=== PATIENT | female | born 1975 | race Two or more races ===

== ENCOUNTER 2016-11-09 17:38 | Emergency (ER) | payer MEDICAID ==
[~2016-11-09] VITALS: Ht 165.1 cm; Wt 86.2 kg
[2016-11-09 17:43] VITALS: BP 144/81
[2016-11-09] MEDS ORDERED: ACETAMINOPHEN ES 500 MG TABLET PO ONE (18:00)
[2016-11-09] MEDS ORDERED: ACETAMINOPHEN ES 500 MG TABLET ONE (18:05)
== END 2016-11-09 21:29 | disposition home or self-care (01) ==
LOC: ER 17:40
DX: R51 Headache (principal); I10 Essential (primary) hypertension; C79.31 Secondary malignant neoplasm of brain; Z85.820 Personal history of malignant melanoma of skin; Z98.2 Presence of cerebrospinal fluid drainage device; Z88.6 Allergy status to analgesic agent; V49.40XA Driver injured in collision with unspecified motor vehicles in traffic accident, initial encounter; Y93.89 Activity, other specified; Y92.89 Other specified places as the place of occurrence of the external cause; Y99.9 Unspecified external cause status
CPT/HCPCS: 99283; A4606; Z7610

== ENCOUNTER 2019-08-04 18:20 | Emergency (ER) | payer MEDICAID ==
[~2019-08-04] VITALS: Ht 154.9 cm; Wt 104.3 kg
[2019-08-04 18:42] VITALS: BP 113/81
[2019-08-04] MEDS ORDERED: ALPRAZOLAM 0.25 MG TABLET PO ONE (19:00)
[2019-08-04] MEDS ORDERED: ALPRAZOLAM 0.25 MG TABLET ONE (19:11)
[2019-08-04] MEDS ORDERED: diphenhydrAMINE HCL 25 MG CAPSULE PO ONE (20:30)
[2019-08-04] MEDS ORDERED: diphenhydrAMINE HCL 25 MG CAPSULE ONE (21:13)
== END 2019-08-04 21:36 | disposition home or self-care (01) ==
LOC: ER 18:24
DX: F41.9 Anxiety disorder, unspecified (principal); F43.9 Reaction to severe stress, unspecified; I10 Essential (primary) hypertension; Z98.890 Other specified postprocedural states; Z90.49 Acquired absence of other specified parts of digestive tract; Z90.710 Acquired absence of both cervix and uterus; Z88.6 Allergy status to analgesic agent; Z85.828 Personal history of other malignant neoplasm of skin
CPT/HCPCS: 99284; Q0163

== ENCOUNTER 2019-08-31 21:36 | Emergency (ER) | payer SELFPAY ==
[~2019-08-31] VITALS: Ht 154.9 cm; Wt 95.3 kg
[2019-08-31 22:08] VITALS: BP 138/89
--- NOTE | 2019-08-31 22:18 | NUR ---
PT AAOX4. AMBULATORY. PT C/O SKIN RASH L UPPER EXT, +L FACIAL SWELLING. PT ALSO STATED SHE HAS SHINGLES AND USUALLY GETS PO MEDS TO TAKE CARE OF THE RASH. NO ACUTE DISTRESS NOTED.
== END 2019-08-31 22:51 | disposition home or self-care (01) ==
LOC: ER 21:40
DX: B02.9 Zoster without complications (principal); I10 Essential (primary) hypertension; Z90.710 Acquired absence of both cervix and uterus; Z88.8 Allergy status to other drugs, medicaments and biological substances; Z88.6 Allergy status to analgesic agent; Z98.890 Other specified postprocedural states; Z85.820 Personal history of malignant melanoma of skin

== ENCOUNTER 2019-10-05 18:11 | Emergency (ER) | payer OTHER, MEDICAID ==
[~2019-10-05] VITALS: Ht 154.9 cm; Wt 103.9 kg
[2019-10-05] MEDS ORDERED: PROCHLORPERAZINE EDISYLATE 10 MG/2 ML VIAL ONE (18:58)
[2019-10-05] MEDS ORDERED: diphenhydrAMINE HCL 50 MG/ML VIAL ONE (18:58)
[2019-10-05] MEDS ORDERED: DEXAMETHASONE SOD PHOSPHATE 10 MG/ML VIAL ONE (18:58)
[2019-10-05] MEDS ORDERED: KETOROLAC TROMETHAMINE INJ 30 MG/ML VIAL ONE (18:58)
[2019-10-05] MEDS ORDERED: diphenhydrAMINE HCL 50 MG/ML VIAL IV ONE (19:00)
[2019-10-05] MEDS ORDERED: DEXAMETHASONE SOD PHOSPHATE 10 MG/ML VIAL IV ONE (19:00)
[2019-10-05] MEDS ORDERED: PROCHLORPERAZINE EDISYLATE 10 MG/2 ML VIAL IVP ONE (19:00)
[2019-10-05] MEDS ORDERED: IV NS 0.9% 1,000 ML BAG IV ONE (19:00)
[2019-10-05] MEDS ORDERED: KETOROLAC TROMETHAMINE INJ 30 MG/ML VIAL IV ONE (19:00)
--- NOTE | 2019-10-05 19:05 | NUR ---
patient came in to the er c/o worsening pressure headache, l facial nuumbness since last night. nauseted. vomitted x 3 last night. On room air, breathing evenly and unlabored. connected to the monitor and pulse ox. kept comfortable, will continue to monitor accordingly.
--- NOTE | 2019-10-05 19:09 | NUR ---
report given to Tony LARSEN for marisol.
--- NOTE | 2019-10-05 19:31 | NUR ---
received endorsement from LOVE [employer]iones. will continue to monitor pt's condition.
--- NOTE | 2019-10-05 19:46 | NUR ---
Patient discharged to home in stable condition. Written and verbal after care instructions given. Patient verbalizes understanding of instruction and RX. IV removed. Catheter intact and site benign. Pressure and 4x4 applied to site. No bleeding noted. PT ambulatory with a steady gait.
[2019-10-05 19:47] VITALS: BP 128/78
== END 2019-10-05 19:50 | disposition home or self-care (01) ==
LOC: ER 18:13
DX: R51 Headache (principal); R11.2 Nausea with vomiting, unspecified; I10 Essential (primary) hypertension; Z90.710 Acquired absence of both cervix and uterus; Z88.6 Allergy status to analgesic agent; Z88.8 Allergy status to other drugs, medicaments and biological substances; Z85.820 Personal history of malignant melanoma of skin
CPT/HCPCS: 96361; 96374; 96375; 99283; J0780; J1100; J1200; J1885; J7030

== ENCOUNTER 2019-12-04 09:44 | Emergency (ER) | payer MEDICAID, OTHER ==
[~2019-12-04] VITALS: Ht 154.9 cm; Wt 106.1 kg
--- NOTE | 2019-12-04 10:00 | NUR ---
HEADACHE, NAUSEA SINCE LAST NIGHT S/P ANXIETY ATTACK . PATIENT A/OX4, BREATHING EVEN AND UNLABORED, AMBULATORY WITH STEADY GAIT. NO DISTRESS NOTED.
[2019-12-04] MEDS ORDERED: PROCHLORPERAZINE EDISYLATE 10 MG/2 ML VIAL ONE (10:08)
[2019-12-04] MEDS ORDERED: KETOROLAC TROMETHAMINE INJ 30 MG/ML VIAL ONE (10:08)
[2019-12-04 10:19] VITALS: BP 121/82
--- NOTE | 2019-12-04 10:19 | NUR ---
Patient discharged to home in stable condition. Written and verbal after care instructions given. Patient verbalizes understanding of instruction.
[2019-12-04] MEDS ORDERED: KETOROLAC TROMETHAMINE INJ 60 MG/2 ML VIAL IM ONE (10:30)
[2019-12-04] MEDS ORDERED: PROCHLORPERAZINE EDISYLATE 10 MG/2 ML VIAL IM ONE (10:30)
== END 2019-12-04 10:20 | disposition home or self-care (01) ==
LOC: ER 09:45
DX: G43.909 Migraine, unspecified, not intractable, without status migrainosus (principal); I10 Essential (primary) hypertension; Z90.710 Acquired absence of both cervix and uterus; Z88.6 Allergy status to analgesic agent; Z88.8 Allergy status to other drugs, medicaments and biological substances
CPT/HCPCS: 96372 ×2; 99284; J0780; J1885

== ENCOUNTER 2020-01-16 12:46 | Emergency (ER) | payer OTHER ==
[~2020-01-16] VITALS: Ht 152.4 cm; Wt 112.9 kg
--- NOTE | 2020-01-16 12:55 | NUR ---
PT AMBULATORY TO ER BED 03 C/O HEADACHE W/ NAUSEA FOR 2 DAYS NOW. HX OF RECCURENT HEADACHE. 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 VSS. DENIES CHEST PAIN. AWAITING MD LEGGETT.
--- NOTE | 2020-01-16 13:12 | NUR ---
SUZANNE DIGITAL STRATEGY MANAGER AT BEDSIDE FOR EVAL.
[2020-01-16] MEDS ORDERED: METOCLOPRAMIDE HCL 10 MG/2 ML VIAL ONE (13:15)
[2020-01-16] MEDS ORDERED: diphenhydrAMINE HCL 50 MG/ML VIAL ONE (13:17)
[2020-01-16] MEDS ORDERED: HYDROMORPHONE 1 MG/1 ML DISP.SYRIN IV ONE (13:30)
[2020-01-16] MEDS ORDERED: diphenhydrAMINE HCL 50 MG/ML VIAL IV ONE (13:30)
[2020-01-16] MEDS ORDERED: METOCLOPRAMIDE HCL 10 MG/2 ML VIAL IV ONE (13:30)
[2020-01-16] MEDS ORDERED: IV NS 0.9% 100 ML BAG IV ONE (13:30)
[2020-01-16] MEDS ORDERED: HYDROMORPHONE 1 MG/1 ML DISP.SYRIN ONE (13:36)
[2020-01-16 14:19] VITALS: BP 125/78
--- NOTE | 2020-01-16 14:24 | NUR ---
IV removed. Catheter intact and site benign. Pressure and 4x4 applied to site. No bleeding noted. Pt feeling much better. denies nausea. Patient discharged to home in stable condition. Written and verbal after care instructions given. Patient verbalizes understanding of instruction.
== END 2020-01-16 14:26 | disposition home or self-care (01) ==
LOC: ER 12:47
DX: R51 Headache (principal); I10 Essential (primary) hypertension; Z98.890 Other specified postprocedural states; Z88.6 Allergy status to analgesic agent; Z88.8 Allergy status to other drugs, medicaments and biological substances; Z98.2 Presence of cerebrospinal fluid drainage device
CPT/HCPCS: 96374; 96375; 99284; J1170; J1200; J2765; J7030 ×2

== ENCOUNTER 2020-02-08 01:36 | Emergency (ER) | payer MEDICAID, OTHER ==
[~2020-02-08] VITALS: Ht 152.4 cm; Wt 116.1 kg
--- NOTE | 2020-02-08 01:45 | NUR ---
PT CAME TO THE ED C/O PRESSURE ON THE R SIDE OF HER HEAD AND R EYE AFTER HAVING AN ARUMENT W/ HER SON. 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 PT AAAOX4, VSS, RESPIRATIONS EVEN AND UNLABORED ON RA W/ NAD NOTED. PT CONNECTED TO THE HOUSEKEEPING SUPERVISOR AND POX
[2020-02-08] MEDS ORDERED: LORAZEPAM 0.5 MG TABLET ONE (01:59)
[2020-02-08] MEDS ORDERED: KETOROLAC TROMETHAMINE INJ 30 MG/ML VIAL ONE (01:59)
[2020-02-08] MEDS ORDERED: KETOROLAC TROMETHAMINE INJ 60 MG/2 ML VIAL IM ONE (02:00)
[2020-02-08 02:01] VITALS: BP 135/82
[2020-02-08] MEDS: LORAZEPAM 0.5 MG TABLET PO ONE ×2 (02:04→02:12)
--- NOTE | 2020-02-08 02:19 | NUR ---
Patient discharged to home in stable condition. Written and verbal after care instructions given. Patient verbalizes understanding of instruction.pt ambulatory with a steady gait
== END 2020-02-08 02:20 | disposition home or self-care (01) ==
LOC: ER 01:38
DX: G44.209 Tension-type headache, unspecified, not intractable (principal); I10 Essential (primary) hypertension; Z98.890 Other specified postprocedural states; Z88.6 Allergy status to analgesic agent; Z88.8 Allergy status to other drugs, medicaments and biological substances
CPT/HCPCS: 96372; 99283; J1885

== ENCOUNTER 2020-02-20 19:48 | Emergency (ER) | payer MEDICAID, OTHER ==
[~2020-02-20] VITALS: Ht 175.3 cm; Wt 117.0 kg
--- NOTE | 2020-02-20 20:00 | NUR ---
PT AAOX4. AMBULATORYU BIBSELF C/O HEAD PRESSURE THAT STARTED THREE DAYS AGO. ALSO C/O LEFT SIDED NUMBNESS FOR THE PAST TWO HOURS. PALCED IN BED 9, ON MONITOR, AND PULSE OX. VSS. RR EVEN AND UNLABORED. MD AT BEDSIDE FOR EVAL.
--- NOTE | 2020-02-20 20:08 | NUR ---
EMT AT BEDSIDE FOR EKG
[2020-02-20] MEDS ORDERED: diphenhydrAMINE HCL 50 MG/ML VIAL ONE (20:09)
[2020-02-20] MEDS ORDERED: KETOROLAC TROMETHAMINE 15 MG/ML VIAL ONE (20:09)
[2020-02-20] MEDS ORDERED: METOCLOPRAMIDE HCL 10 MG/2 ML VIAL ONE (20:09)
[2020-02-20 20:12] LABS: BASOPHILS # (AUTO) 0.1 /CMM (0.0-0.2); EOSINOPHILS % (AUTO) 2.7 % (0.0-6.0); HEMATOCRIT 42 % (33-45); HEMOGLOBIN 14.1 g/dL (11.5-14.8); LYMPHOCYTES # (AUTO) 4.1 /CMM (0.8-4.8); LYMPHOCYTES % (AUTO) 33.5 % (20.0-44.0); MEAN CORPUSCULAR HGB CONC 33 g/dl (31.0-36.0); MEAN CORPUSCULAR VOLUME 92 fL (82-100); MONOCYTES # (AUTO) 1.1 /CMM (0.1-1.30); MONOCYTES % (AUTO) 8.6 % (2.0-12.0); NEUTROPHILS # (AUTO) 6.7 /CMM (1.8-8.9); NEUTROPHILS % (AUTO) 54.2 % (43.0-81.0); PLATELET COUNT (AUTO) 270 /CMM (150-450); RED BLOOD CELL COUNT(AUTO) 4.59 MIL/uL (4.0-5.2); WHITE BLOOD COUNT (AUTO) 12.3 K/uL (4.3-11.0)
[2020-02-20 20:21] LABS: CALCIUM, SERUM 8.6 mg/dL (8.5-10.1); CREATININE 0.8 mg/dL (0.6-1.3); POTASSIUM 3.5 mmol/L (3.5-5.1)
--- NOTE | 2020-02-20 20:25 | NUR ---
URINE COLLECTED AND SENT TO LAB.
--- NOTE | 2020-02-20 20:29 | NUR ---
PATIENT TAKEN TO CT.
[2020-02-20] MEDS ORDERED: METOCLOPRAMIDE HCL 10 MG/2 ML VIAL IV ONE (20:30)
[2020-02-20] MEDS ORDERED: KETOROLAC TROMETHAMINE INJ 30 MG/ML VIAL IV ONE (20:30)
[2020-02-20] MEDS ORDERED: diphenhydrAMINE HCL 50 MG/ML VIAL IV ONE (20:30)
[2020-02-20 20:37] LABS: APPEARANCE,URINE Clear (CLEAR); BILIRUBIN,URINE Negative (NEGATIVE); BLOOD, URINE Negative Ery/uL (NEGATIVE); COLOR,URINE Yellow (YELLOW); KETONES,URINE Negative (NEGATIVE); LEUKOCYTE ESTERASE ,URINE Negative (NEGATIVE); NITRITE, URINE Negative (NEGATIVE); PROTEIN,URINE Negative (NEGATIVE); UGLUCOSE Negative (NEGATIVE); UROBILINOGEN,URINE 0.2 EU/dL (0.2)
--- NOTE | 2020-02-20 21:29 | NUR ---
IV removed. Catheter intact and site benign. Pressure and 4x4 applied to site. No bleeding noted.
--- NOTE | 2020-02-20 21:29 | NUR ---
Patient discharged to home in stable condition. Written and verbal after care instructions given. Patient verbalizes understanding of instruction.
[2020-02-20 21:30] VITALS: BP 131/73
== END 2020-02-20 21:34 | disposition home or self-care (01) ==
LOC: ER 19:53
DX: R51 Headache (principal); I10 Essential (primary) hypertension; Z98.890 Other specified postprocedural states; Z88.6 Allergy status to analgesic agent; Z88.8 Allergy status to other drugs, medicaments and biological substances
CPT/HCPCS: 36415; 70450; 71046; 74018; 80048; 81001; 82962; 84703; 85025; 85730; 93005; 96374; 96375; 99285; J1200; J1885; J2765; 81000-TC

== ENCOUNTER 2020-04-01 16:22 | Emergency (ER) | payer MEDICAID, OTHER ==
[~2020-04-01] VITALS: Ht 165.1 cm; Wt 115.7 kg
--- NOTE | 2020-04-01 16:43 | NUR ---
came in for "Pain on left side of head going to face/neck x4days worse now", to ER bed 12, hooked to monitor, changed o hosp gown, warm blanket provided, awaiting MD morgan
--- NOTE | 2020-04-01 17:00 | NUR ---
Dr Napier at bedside
[2020-04-01] MEDS ORDERED: SUMATRIPTAN SUCCINATE 6 MG/0.5 ML VIAL SQ ONE (17:30)
[2020-04-01] MEDS ORDERED: KETOROLAC TROMETHAMINE 15 MG/ML VIAL ONE (17:30)
[2020-04-01] MEDS ORDERED: METOCLOPRAMIDE HCL 10 MG/2 ML VIAL ONE (17:30)
[2020-04-01] MEDS: SUMATRIPTAN SUCCINATE 6 MG/0.5 ML VIAL SQ ONE (17:48)
[2020-04-01] MEDS: METOCLOPRAMIDE HCL 10 MG/2 ML VIAL IV ONE (17:49)
[2020-04-01] MEDS: IV NS 0.9% 1,000 ML BAG IV ONE (17:49)
[2020-04-01] MEDS: KETOROLAC TROMETHAMINE INJ 30 MG/ML VIAL IV ONE (17:50)
--- NOTE | 2020-04-01 18:32 | NUR ---
patient in bed comfortable. hooked to monitor, will continue to monitor accordingly.
--- NOTE | 2020-04-01 19:23 | NUR ---
IV removed. Catheter intact and site benign. Pressure and 4x4 applied to site. No bleeding noted.Patient discharged to home in stable condition. Written and verbal after care instructions given. Patient verbalizes understanding of instruction.
[2020-04-01 19:24] VITALS: BP 132/81
== END 2020-04-01 19:24 | disposition home or self-care (01) ==
LOC: ER 16:32
DX: G43.909 Migraine, unspecified, not intractable, without status migrainosus (principal); I10 Essential (primary) hypertension; Z98.890 Other specified postprocedural states; Z88.8 Allergy status to other drugs, medicaments and biological substances; Z88.6 Allergy status to analgesic agent
CPT/HCPCS: 70450; 71045; 74018; 96372; 96374; 96375; 99285; J1885; J2765; J3030; J7030 ×2

== ENCOUNTER 2020-04-24 18:12 | Emergency (ER) | payer MEDICAID ==
[~2020-04-24] VITALS: Ht 152.4 cm; Wt 115.7 kg
--- NOTE | 2020-04-24 18:20 | NUR ---
Came in for "Head pain started saturday and also having a rash on my left arm (shingles)". to ER bed 2, hooked to monitor, changed to hosp gown, aao X 4, breathing even and unlabored. awaiting MD morgan.
--- NOTE | 2020-04-24 18:30 | NUR ---
Dr Villanueva at bedside
[2020-04-24] MEDS ORDERED: diphenhydrAMINE HCL 50 MG/ML VIAL ONE (18:53)
[2020-04-24] MEDS ORDERED: METOCLOPRAMIDE HCL 10 MG/2 ML VIAL ONE (18:53)
[2020-04-24] MEDS ORDERED: KETOROLAC TROMETHAMINE INJ 30 MG/ML VIAL IV ONE (19:00)
[2020-04-24] MEDS ORDERED: METOCLOPRAMIDE HCL 10 MG/2 ML VIAL IV ONE (19:00)
[2020-04-24] MEDS ORDERED: diphenhydrAMINE HCL 50 MG/ML VIAL IV ONE (19:00)
[2020-04-24] MEDS ORDERED: KETOROLAC TROMETHAMINE INJ 30 MG/ML VIAL ONE (19:02)
[2020-04-24 19:55] VITALS: BP 121/79
--- NOTE | 2020-04-24 19:55 | NUR ---
Patient discharged to home in stable condition. Written and verbal after care instructions given. Patient verbalizes understanding of instruction.
--- NOTE | 2020-04-24 19:55 | NUR ---
IV removed. Catheter intact and site benign. Pressure and 4x4 applied to site. No bleeding noted.
== END 2020-04-24 19:56 | disposition home or self-care (01) ==
LOC: ER 18:12
DX: G43.909 Migraine, unspecified, not intractable, without status migrainosus (principal); I10 Essential (primary) hypertension; Z98.890 Other specified postprocedural states; Z88.6 Allergy status to analgesic agent; Z88.8 Allergy status to other drugs, medicaments and biological substances
CPT/HCPCS: 84703; 96374; 96375; 99284; J1200; J1885; J2765; J7030

== ENCOUNTER 2020-06-11 17:01 | Emergency (ER) | payer MEDICAID, OTHER ==
[~2020-06-11] VITALS: Ht 152.4 cm; Wt 117.0 kg
[2020-06-11] MEDS ORDERED: IV NS 0.9% 250 ML BAG IV ONE (17:30)
[2020-06-11] MEDS ORDERED: diphenhydrAMINE HCL 50 MG/ML VIAL IV ONE (17:30)
[2020-06-11] MEDS ORDERED: METOCLOPRAMIDE HCL 10 MG/2 ML VIAL IV ONE (17:30)
--- NOTE | 2020-06-11 17:38 | NUR ---
PT TO CT VIA RORY
--- NOTE | 2020-06-11 17:49 | NUR ---
PT BACK FROM CT.
[2020-06-11] MEDS ORDERED: diphenhydrAMINE HCL 50 MG/ML VIAL ONE (17:50)
[2020-06-11] MEDS ORDERED: METOCLOPRAMIDE HCL 10 MG/2 ML VIAL ONE (17:51)
--- NOTE | 2020-06-11 18:05 | NUR ---
headache, tingly sensation to L side of face s/p picking up a box 9am sts took migraine meds w/ no relief. PT AAOX4, VSS. RR EVEN & UNLABORED. DENIES CP, SOB, DIZZINESS, WEAKNESS AT THIS TIME. PT SEEN & EVAL'D BY TAMI PALACIOS. MEDICATED ORDERED, PT JONI WELL. WILL CONT TO MONITOR.
[2020-06-11] MEDS ORDERED: ONDANSETRON HCL/PF 4 MG/2 ML VIAL ONE (18:26)
[2020-06-11] MEDS ORDERED: KETOROLAC TROMETHAMINE INJ 30 MG/ML VIAL ONE (18:26)
--- NOTE | 2020-06-11 18:29 | NUR ---
MEDICATED FOR BURGESS/NAUSEA PER MARSII, DIRECTOR CARD'S ORDER. PT JONI WELL.
[2020-06-11] MEDS ORDERED: ONDANSETRON HCL/PF 4 MG/2 ML VIAL IV ONE (18:30)
[2020-06-11] MEDS ORDERED: KETOROLAC TROMETHAMINE INJ 30 MG/ML VIAL IV ONE (18:30)
--- NOTE | 2020-06-11 19:52 | NUR ---
Patient discharged to home in stable condition. Written and verbal after care instructions given. Patient verbalizes understanding of instruction. IV removed. Catheter intact and site benign. Pressure and 4x4 applied to site. No bleeding noted.
[2020-06-11 19:53] VITALS: BP 124/70
== END 2020-06-11 19:53 | disposition home or self-care (01) ==
LOC: ER 17:09
DX: G43.909 Migraine, unspecified, not intractable, without status migrainosus (principal); H53.149 Visual discomfort, unspecified; I10 Essential (primary) hypertension; Z85.840 Personal history of malignant neoplasm of eye; Z98.890 Other specified postprocedural states; Z88.6 Allergy status to analgesic agent; Z88.8 Allergy status to other drugs, medicaments and biological substances
CPT/HCPCS: 70450; 96374; 96375; 99284; J1200; J1885; J2405; J2765; J7050

== ENCOUNTER 2020-07-07 12:11 | Emergency (ER) | payer MEDICAID ==
[~2020-07-07] VITALS: Ht 154.9 cm; Wt 122.5 kg
--- NOTE | 2020-07-07 12:30 | NUR ---
MIGRAINE ATTACK,MEDS NOT HELPING. PATIENT A/OX4, BREATHING EVEN AND UNLABORED, NO SOB NOTED, NEEDS ATTENDED, KEPT COMFORTABLE.
[2020-07-07] MEDS ORDERED: METOCLOPRAMIDE HCL 10 MG/2 ML VIAL ONE (13:00)
[2020-07-07] MEDS ORDERED: KETOROLAC TROMETHAMINE 15 MG/ML VIAL ONE (13:00)
[2020-07-07] MEDS ORDERED: METOCLOPRAMIDE HCL 10 MG/2 ML VIAL IV ONE (13:00)
[2020-07-07] MEDS ORDERED: IV NS 0.9% 500 ML BAG IV ONE (13:00)
[2020-07-07] MEDS ORDERED: diphenhydrAMINE HCL 50 MG/ML VIAL IV ONE (13:00)
[2020-07-07] MEDS ORDERED: SUMATRIPTAN SUCCINATE 6 MG/0.5 ML VIAL SQ ONE ×2 (13:00)
[2020-07-07] MEDS ORDERED: ONDANSETRON HCL/PF 4 MG/2 ML VIAL ONE (13:00)
[2020-07-07] MEDS ORDERED: KETOROLAC TROMETHAMINE INJ 30 MG/ML VIAL IV ONE (13:00)
[2020-07-07] MEDS ORDERED: ONDANSETRON HCL/PF 4 MG/2 ML VIAL IVP ONE (13:00)
[2020-07-07] MEDS ORDERED: diphenhydrAMINE HCL 50 MG/ML VIAL ONE (13:00)
--- NOTE | 2020-07-07 14:09 | NUR ---
Patient sts migraine has improved. No distress noted. IV removed. Catheter intact and site benign. Pressure and 4x4 applied to site. No bleeding noted.Patient discharged to home in stable condition. Written and verbal after care instructions given. Patient verbalizes understanding of instruction.
[2020-07-07 14:11] VITALS: BP 108/69
== END 2020-07-07 14:11 | disposition home or self-care (01) ==
LOC: ER 12:16
DX: G43.909 Migraine, unspecified, not intractable, without status migrainosus (principal); I10 Essential (primary) hypertension; Z90.710 Acquired absence of both cervix and uterus; Z88.6 Allergy status to analgesic agent; Z88.5 Allergy status to narcotic agent; Z88.8 Allergy status to other drugs, medicaments and biological substances
CPT/HCPCS: 96372; 96374; 96375; 99284; J1200; J1885; J2405; J2765; J3030; J7040

== ENCOUNTER 2020-12-11 19:14 | Emergency (ER) | payer MEDICAID ==
[~2020-12-11] VITALS: Ht 154.9 cm; Wt 104.3 kg
--- NOTE | 2020-12-11 19:32 | NUR ---
PT BIBSELF C/O HEADACHE X3 DAYS. HISTORY OF MIGRAINES AND INTELLIGENCE APPLICATIONS SHUNT. PT STATES SHE WAS "SITTING IN [place] AND BOTH MY HANDS STARTED TINGLING". PT ALSO C/O NAUSEA, VOMITTING, AND PHOTOPHOBIA. NO NEURO DEFICITS NOTED. PT AAOX4. VITAL SIGNS STABLE. RESPIRATIONS EVEN AND UNLABORED. AMBULATORY WITH STEADY GAIT. PLACED ON MONITOR, WILL CONTINUE TO MONITOR
[2020-12-11] MEDS ORDERED: METOCLOPRAMIDE HCL 10 MG/2 ML VIAL ONE (19:50)
[2020-12-11] MEDS ORDERED: KETOROLAC TROMETHAMINE 15 MG/ML VIAL ONE (19:50)
[2020-12-11] MEDS ORDERED: SUMATRIPTAN SUCCINATE 6 MG/0.5 ML VIAL SQ ONE ×2 (19:50→20:00)
[2020-12-11] MEDS ORDERED: KETOROLAC TROMETHAMINE INJ 30 MG/ML VIAL IV ONE (20:00)
[2020-12-11] MEDS ORDERED: IV NS 0.9% 1,000 ML BAG IV ONE (20:00)
[2020-12-11] MEDS ORDERED: METOCLOPRAMIDE HCL 10 MG/2 ML VIAL IV ONE (20:00)
[2020-12-11] MEDS ORDERED: diphenhydrAMINE HCL 50 MG/ML VIAL ONE (20:18)
[2020-12-11] MEDS ORDERED: diphenhydrAMINE HCL 50 MG/ML VIAL IV ONE (20:30)
[2020-12-11] MEDS ORDERED: SUMA50TA PO (20:37)
[2020-12-11 21:13] VITALS: BP 118/79
--- NOTE | 2020-12-11 21:13 | NUR ---
Patient discharged to home in stable condition. Written and verbal after care instructions given. Patient verbalizes understanding of instruction.IV removed. Catheter intact and site benign. Pressure and 4x4 applied to site. No bleeding noted.Pt ambulatory with a steady gait
== END 2020-12-11 21:13 | disposition home or self-care (01) ==
LOC: ER 19:16
DX: G43.909 Migraine, unspecified, not intractable, without status migrainosus (principal); I10 Essential (primary) hypertension; Z85.820 Personal history of malignant melanoma of skin; Z90.710 Acquired absence of both cervix and uterus; Z88.6 Allergy status to analgesic agent; Z88.5 Allergy status to narcotic agent; Z88.8 Allergy status to other drugs, medicaments and biological substances; Z79.899 Other long term (current) drug therapy
CPT/HCPCS: 96361; 96372; 96374; 96375; 99284; J1200; J1885; J2765; J3030; J7030

== ENCOUNTER 2021-02-03 19:45 | Emergency (ER) | payer OTHER ==
[~2021-02-03] VITALS: Ht 152.4 cm; Wt 113.4 kg
[~2021-02-03 19:45] MED LIST: SUMA50TA PO
--- NOTE | 2021-02-03 20:02 | NUR ---
BIBS WITH DAUGHTER FROM HOME TO ER BED 7. AAOX4. NOT IN RESP DISTRESS. AMBULATORY. CAME IN FOR L SIDED HEADACHE SINCE YESTERDAY WORST TODAY. PT REPORT HER PAIN SHARP THROBBING. WITH LIGHT SENSITIVITY. NO NEURO DEFICIT NOTED. MD WAS AT BEDSIDE FOR EVAL. ORDERS RECEIVED, NOTD AND CARRIED OUT. IV LINE ESTABLISHED ON RAC 20G.
[2021-02-03] MEDS ORDERED: SUMATRIPTAN SUCCINATE 6 MG/0.5 ML VIAL SQ ONE ×2 (20:10→20:30)
[2021-02-03] MEDS ORDERED: KETOROLAC TROMETHAMINE 15 MG/ML VIAL ONE (20:10)
[2021-02-03] MEDS ORDERED: diphenhydrAMINE HCL 50 MG/ML VIAL ONE (20:10)
[2021-02-03] MEDS ORDERED: METOCLOPRAMIDE HCL 10 MG/2 ML VIAL ONE (20:11)
[2021-02-03] MEDS ORDERED: diphenhydrAMINE HCL 50 MG/ML VIAL IV ONE (20:30)
[2021-02-03] MEDS ORDERED: METOCLOPRAMIDE HCL 10 MG/2 ML VIAL IV ONE (20:30)
[2021-02-03] MEDS ORDERED: IV NS 0.9% 1,000 ML BAG IV ONE (20:30)
[2021-02-03] MEDS ORDERED: KETOROLAC TROMETHAMINE INJ 30 MG/ML VIAL IV ONE (20:30)
[2021-02-03] MEDS ORDERED: METO-295 PO (21:26)
[2021-02-03] MEDS ORDERED: SUMA100T16 PO (21:26)
--- NOTE | 2021-02-03 21:39 | NUR ---
IV removed. Catheter intact and site benign. Pressure and 4x4 applied to site. No bleeding noted. Pt ambulatory with a steady gait
--- NOTE | 2021-02-03 21:39 | NUR ---
Patient discharged to home in stable condition. Written and verbal after care instructions given. Patient verbalizes understanding of instruction.
[2021-02-03 22:03] VITALS: BP 118/79
== END 2021-02-03 21:40 | disposition home or self-care (01) ==
LOC: ER 19:45
DX: G43.909 Migraine, unspecified, not intractable, without status migrainosus (principal); I10 Essential (primary) hypertension; Z98.890 Other specified postprocedural states; Z88.8 Allergy status to other drugs, medicaments and biological substances; Z88.6 Allergy status to analgesic agent; Z79.899 Other long term (current) drug therapy
CPT/HCPCS: 96361; 96372; 96374; 96375; 99284; J1200; J1885; J2765; J3030; J7030

== ENCOUNTER 2021-02-18 14:25 | Emergency (ER) | payer OTHER ==
[~2021-02-18] VITALS: Ht 152.4 cm; Wt 117.0 kg
[~2021-02-18 14:25] MED LIST changes: +METO-295 PO; +SUMA100T16 PO
[2021-02-18] MEDS: IV NS 0.9% 1,000 ML BAG IV ONE (15:17)
[2021-02-18] MEDS ORDERED: diphenhydrAMINE HCL 50 MG/ML VIAL ONE (15:18)
[2021-02-18] MEDS ORDERED: KETOROLAC TROMETHAMINE 15 MG/ML VIAL ONE (15:19)
[2021-02-18] MEDS ORDERED: PROCHLORPERAZINE EDISYLATE 10 MG/2 ML VIAL ONE (15:19)
[2021-02-18] MEDS: diphenhydrAMINE HCL 50 MG/ML VIAL IV ONE (15:25)
[2021-02-18] MEDS: PROCHLORPERAZINE EDISYLATE 10 MG/2 ML VIAL IVP ONE (15:25)
[2021-02-18 15:26] LABS: BASOPHILS # (AUTO) 0.1 /CMM (0.0-0.2); EOSINOPHILS % (AUTO) 2.5 % (0.0-6.0); HEMATOCRIT 46 % (33-45); HEMOGLOBIN 15.3 g/dL (11.5-14.8); LYMPHOCYTES # (AUTO) 4.2 /CMM (0.8-4.8); LYMPHOCYTES % (AUTO) 37.1 % (20.0-44.0); MEAN CORPUSCULAR HGB CONC 33 g/dl (31.0-36.0); MEAN CORPUSCULAR VOLUME 91 fL (82-100); MONOCYTES # (AUTO) 0.7 /CMM (0.1-1.30); MONOCYTES % (AUTO) 6.6 % (2.0-12.0); NEUTROPHILS # (AUTO) 5.9 /CMM (1.8-8.9); NEUTROPHILS % (AUTO) 52.8 % (43.0-81.0); PLATELET COUNT (AUTO) 307 /CMM (150-450); RED BLOOD CELL COUNT(AUTO) 5.05 MIL/uL (4.0-5.2); WHITE BLOOD COUNT (AUTO) 11.3 K/uL (4.3-11.0)
[2021-02-18] MEDS: KETOROLAC TROMETHAMINE INJ 30 MG/ML VIAL IV ONE (15:27)
--- NOTE | 2021-02-18 15:27 | NUR ---
MIGRAINE HEADACHE, NAUSEA X 3 DAYS WORST TODAY. PT AAOX4, VSS. RR EVEN & UNLABORED. DENIES CP, SOB, DIZZINESS, VISUAL CHANGES, WEAKNESS AT THIS TIME. PT SEEN & EVAL'D BY DR. NGUYEN. MEDICATED ORDERED, PT JONI WELL. WILL CONT TO MONITOR.
[2021-02-18 15:35] LABS: CALCIUM, SERUM 9.2 mg/dL (8.5-10.1); CREATININE 0.7 mg/dL (0.6-1.3); POTASSIUM 3.9 mmol/L (3.5-5.1)
[2021-02-18 17:48] VITALS: BP 132/78
== END 2021-02-18 17:49 | disposition home or self-care (01) ==
LOC: ER 14:25
DX: G43.909 Migraine, unspecified, not intractable, without status migrainosus (principal); I10 Essential (primary) hypertension; Z98.890 Other specified postprocedural states; Z88.6 Allergy status to analgesic agent; Z88.8 Allergy status to other drugs, medicaments and biological substances
CPT/HCPCS: 36415; 70250; 70450; 71046; 74021; 80048; 85025; 96361; 96374; 96375; 99285; J0780; J1200; J1885; J7030

== ENCOUNTER 2021-06-11 20:05 | Emergency (ER) | payer OTHER ==
[~2021-06-11] VITALS: Ht 152.4 cm; Wt 117.9 kg
[2021-06-11 20:11] VITALS: BP 94/62
--- NOTE | 2021-06-11 20:19 | NUR ---
BIB SELF FOR DRY COUGH FOR FEW DAYS. A&0X4 NO FEVER OR SOB. O2 SAT 96% RA RESPIRATIONS EVEN AND UNLABORED. MD WAS AT BEDSIDE FOR EVAL.
[2021-06-11] MEDS ORDERED: CIPR7.5D9 EACH EAR (21:31)
[2021-06-11] MEDS ORDERED: AZIT250T13 PO (21:31)
== END 2021-06-11 21:50 | disposition home or self-care (01) ==
LOC: ER 20:11
DX: J20.9 Acute bronchitis, unspecified (principal); H60.91 Unspecified otitis externa, right ear; Z85.820 Personal history of malignant melanoma of skin; Z20.822 Contact with and (suspected) exposure to COVID-19; Z90.710 Acquired absence of both cervix and uterus; I10 Essential (primary) hypertension; Z97.0 Presence of artificial eye; Z88.6 Allergy status to analgesic agent; Z88.8 Allergy status to other drugs, medicaments and biological substances
CPT/HCPCS: 71045; 87426; 99284; C9803; U0003

== ENCOUNTER 2021-12-25 18:07 | Emergency (ER) | payer OTHER ==
[~2021-12-25] VITALS: Ht 154.9 cm; Wt 117.9 kg
[~2021-12-25 18:07] MED LIST changes: +AZIT250T13 PO; +CIPR7.5D9 EACH EAR
[2021-12-25 18:27] VITALS: BP 104/65
[2021-12-25] MEDS ORDERED: VALA100026 PO (18:44)
== END 2021-12-25 19:43 | disposition home or self-care (01) ==
LOC: ER 18:10
DX: B02.9 Zoster without complications (principal); I10 Essential (primary) hypertension; Z85.841 Personal history of malignant neoplasm of brain; Z85.820 Personal history of malignant melanoma of skin; Z90.710 Acquired absence of both cervix and uterus; Z88.6 Allergy status to analgesic agent; Z88.5 Allergy status to narcotic agent; Z88.8 Allergy status to other drugs, medicaments and biological substances; Z79.899 Other long term (current) drug therapy

== ENCOUNTER 2024-09-03 10:21 | Emergency (ER) | payer OTHER ==
[~2024-09-03] VITALS: Ht 152.4 cm; Wt 108.9 kg
[~2024-09-03 10:21] MED LIST changes: +VALA100026 PO
[2024-09-03] MEDS ORDERED: VALA100026 PO (11:09)
[2024-09-03 11:24] VITALS: BP 130/73; TEMP 98.4; O2SAT 99
== END 2024-09-03 11:24 | disposition home or self-care (01) ==
LOC: ER 10:24
DX: R21 Rash and other nonspecific skin eruption (principal); I10 Essential (primary) hypertension; Z79.624 Long term (current) use of inhibitors of nucleotide synthesis; Z85.820 Personal history of malignant melanoma of skin; Z88.5 Allergy status to narcotic agent; Z90.710 Acquired absence of both cervix and uterus; Z98.2 Presence of cerebrospinal fluid drainage device

== ENCOUNTER 2025-02-08 12:28 | Emergency (ER) | payer OTHER ==
[~2025-02-08] VITALS: Ht 152.4 cm; Wt 85.3 kg
[2025-02-08 12:56] LABS: APPEARANCE,URINE CLEAR (CLEAR); BILIRUBIN,URINE MODERATE (NEGATIVE); BLOOD, URINE Negative Ery/uL (NEGATIVE); COLOR,URINE YELLOW (YELLOW); KETONES,URINE Trace mg/dL (NEGATIVE); LEUKOCYTE ESTERASE ,URINE Trace (NEGATIVE); PH,URINE 5.5 (5.0-8.0); PROTEIN,URINE 30 mg/dl (NEGATIVE); UGLUCOSE Negative (NEGATIVE)
[2025-02-08 12:57] LABS: NITRITE, URINE POSITIVE (NEGATIVE)
[2025-02-08 13:15] LABS: ADD URINE CULTURE YES; BACTERIA,URINE 2+ /HPF (None Seen); RBC,URINE 0-2 /HPF (0-2)
[2025-02-08] MEDS ORDERED: MECLIZINE HCL 25 MG TABLET ONE (14:09)
[2025-02-08] MEDS ORDERED: ONDANSETRON HCL/PF 4 MG/2 ML VIAL ONE (14:09)
[2025-02-08 14:18] LABS: BASOPHILS # (AUTO) 0.1 K/uL (0.0-0.2); BASOPHILS % (AUTO) 0.7 % (0.0-2.0); EOSINOPHILS # (AUTO) 0.3 K/uL (0.0-0.7); EOSINOPHILS % (AUTO) 2.6 % (0.0-6.0); HEMATOCRIT 46 % (33-45); HEMOGLOBIN 15.6 g/dL (11.5-14.8); LYMPHOCYTES # (AUTO) 3.3 K/uL (0.8-4.8); LYMPHOCYTES % (AUTO) 33.3 % (20.0-44.0); MEAN CORPUSCULAR HEMOGLOBIN 31 PG (26.0-33.0); MEAN CORPUSCULAR HGB CONC 34 g/dl (31.0-36.0); MEAN CORPUSCULAR VOLUME 90 fL (82-100); MONOCYTES # (AUTO) 0.6 K/uL (0.1-1.30); MONOCYTES % (AUTO) 6.3 % (2.0-12.0); NEUTROPHILS # (AUTO) 5.6 K/uL (1.8-8.9); NEUTROPHILS % (AUTO) 57.1 % (43.0-81.0); PLATELET COUNT (AUTO) 224 K/uL (150-450); RED BLOOD CELL COUNT(AUTO) 5.09 MIL/uL (4.0-5.2); RED CELL DISTRIBUTION WIDTH 13.1 % (11.5-15.0); WHITE BLOOD COUNT (AUTO) 9.9 K/uL (4.3-11.0)
[2025-02-08 14:28] LABS: CALCIUM, SERUM 9.2 mg/dL (8.5-10.1); CREATININE 0.8 mg/dL (0.6-1.3); POTASSIUM 4.3 mmol/L (3.5-5.1)
[2025-02-08] MEDS: IV NS 0.9% 1,000 ML BAG IV ONE (14:29)
[2025-02-08] MEDS: MECLIZINE HCL 12.5 MG TABLET PO ONE (14:30)
[2025-02-08] MEDS: ONDANSETRON HCL/PF 4 MG/2 ML VIAL IV ONE (14:30)
[2025-02-08 14:33] LABS: ALBUMIN 3.4 g/dL (3.4-5.0); BILIRUBIN,TOTAL 0.5 mg/dL (0.2-1.0); TOTAL PROTEIN, SERUM 7.5 g/dL (6.4-8.2)
[2025-02-08] MEDS ORDERED: CEFTRIAXONE 1GM BAG (ER ONLY) 1 GM/50 ML PIGGYBACK IV ONE (15:00)
[2025-02-08] MEDS ORDERED: AMOX-430 PO (15:14)
[2025-02-08] MEDS ORDERED: ONDA4TAB11 PO (15:19)
[2025-02-08] MEDS: CEFTRIAXONE 1 G in IV D5W 50 ML IV ONE (15:24)
[2025-02-08 16:39] VITALS: BP 106/77; TEMP 98.4; O2SAT 98
== END 2025-02-08 16:41 | disposition home or self-care (01) ==
LOC: ER 12:32
DX: K02.9 Dental caries, unspecified (principal); N39.0 Urinary tract infection, site not specified; R42 Dizziness and giddiness; R11.2 Nausea with vomiting, unspecified; I10 Essential (primary) hypertension; F17.200 Nicotine dependence, unspecified, uncomplicated; Z79.624 Long term (current) use of inhibitors of nucleotide synthesis; Z85.820 Personal history of malignant melanoma of skin; Z88.5 Allergy status to narcotic agent; Z90.710 Acquired absence of both cervix and uterus; Z98.2 Presence of cerebrospinal fluid drainage device; Z79.899 Other long term (current) drug therapy
CPT/HCPCS: 99285; 96365; 96361; 96375; 85025; 81001; 36415; 80053; J8597; J0696; J2405; J7060; J7030